=== PATIENT | male | born 1950 | race Caucasian/White ===

== ENCOUNTER 2018-09-24 08:39 | Inpatient (IN) | payer MEDICARE, OTHER ==
[~2018-09-24] VITALS: Ht 170.2 cm; Wt 58.5 kg
[~2018-09-24 08:39] MED LIST: NIFE60TA13 PO
[2018-09-24 09:07] VITALS: BP 159/72
[2018-09-24] MEDS ORDERED: LACTATED RINGERS 1,000 ML IV SCH (09:10)
[2018-09-24] MEDS ORDERED: ACETAMINOPHEN 500 MG TABLET PO ONE (09:30)
[2018-09-24] MEDS ORDERED: GABAPENTIN 300 MG CAPSULE PO ONE (09:30)
[2018-09-24] MEDS ORDERED: DIAZEPAM 5 MG TABLET PO ONE (09:30)
[2018-09-24] MEDS ORDERED: ONDANSETRON ODT 8 MG PO ONE (09:30)
[2018-09-24] MEDS ORDERED: MIDAZOLAM 1 MG/ML, 2ML ONE (09:47)
[2018-09-24] MEDS ORDERED: FENTANYL PF 250 MCG/5ML ONE (09:48)
[2018-09-24] MEDS ORDERED: BUPIVACAINE/PF 0.5% ONE (10:07)
[2018-09-24] MEDS ORDERED: LABETALOL 20 MG/4 ML ONE ×2 (10:28→12:41)
[2018-09-24] MEDS ORDERED: DIAZEPAM 5 MG/ML, 2ML IVPush PRN (11:00)
[2018-09-24] MEDS ORDERED: ONDANSETRON 2MG/ML, 2ML IV PRN (11:00)
[2018-09-24] MEDS ORDERED: hydrALAzine 20 MG/ML, 1ML IV PRN (11:00)
[2018-09-24] MEDS ORDERED: MIDAZOLAM 1 MG/ML, 2ML IV PRN (11:00)
[2018-09-24] MEDS ORDERED: HYDROmorphone 2 MG/ML, 1ML IVPush PRN (11:00)
[2018-09-24] MEDS ORDERED: ALBUTEROL/IPRATROPIUM 2.5MG/0.5MG, 3 ML NPPB PRN (11:00)
[2018-09-24] MEDS ORDERED: OXYcodone 5 MG/5 ML ORAL.SOL UDC PO PRN (11:00)
[2018-09-24] MEDS ORDERED: MEPERIDINE/PF 25MG/0.5ML IVPush PRN (11:00)
[2018-09-24] MEDS ORDERED: PROMETHAZINE 25 MG/ML, 1ML IV PRN (11:00)
[2018-09-24] MEDS ORDERED: SCOPOLAMINE PATCH, 1.5MG PATCH.TD72 TD PRN (11:00)
[2018-09-24] MEDS ORDERED: ROCURONIUM 10MG/ML,5ML ONE (11:58)
[2018-09-24] MEDS ORDERED: DEXAMETHASONE 4 MG/ML, 1ML ONE (11:58)
[2018-09-24] MEDS ORDERED: NEOSTIGMINE 1 MG/ML, 10ML ONE (11:58)
[2018-09-24] MEDS ORDERED: PROPOFOL 10 MG/ML, 20ML ONE (11:58)
[2018-09-24] MEDS ORDERED: GLYCOPYRROLATE 0.2MG/1ML, 5ML ONE (11:58)
[2018-09-24] MEDS ORDERED: CEFAZOLIN 1,000 MG ONE (11:58)
[2018-09-24] MEDS ORDERED: OXYcodone 5 MG/5 ML ORAL.SOL UDC ONE (12:24)
[2018-09-24] MEDS ORDERED: FENTANYL PF 100 MCG/2ML ONE ×2 (12:24→12:58)
[2018-09-24] MEDS: FENTANYL PF 100 MCG/2ML IV PRN ×3 (12:27→12:59)
[2018-09-24] MEDS: LABETALOL 5MG/ML, 20ML IV PRN ×2 (12:43→12:53)
[2018-09-24] MEDS ORDERED: ACETAMINOPHEN 650 MG/20.3 ML UDC PO PRN (13:00)
[2018-09-24] MEDS ORDERED: DIPHENHYDRAMINE 50 MG/ML, 1ML IV PRN (13:00)
[2018-09-24] MEDS ORDERED: ONDANSETRON 2MG/ML, 2ML IVPush PRN (13:00)
[2018-09-24] MEDS ORDERED: hydrALAzine 20 MG/ML, 1ML ONE (13:17)
[2018-09-24 14:40] VITALS: BP 136/57
[2018-09-24] MEDS: ENOXAPARIN 40 MG/0.4 ML SQ SCH (14:56)
[2018-09-24] MEDS: POTASSIUM CHLORIDE 20 MEQ in D5%-0.45% NACL 1,000 ML IV SCH (16:08)
[2018-09-24] MEDS: CEFAZOLIN PMX 1GM/50ML 50 ML IVPB SCH (18:24)
[2018-09-24 18:54] VITALS: BP 162/73
[2018-09-24] MEDS: hydrALAzine 20 MG/ML, 1ML IV PRN (18:58)
[2018-09-25 00:14] VITALS: BP 141/74
[2018-09-25] MEDS: POTASSIUM CHLORIDE 20 MEQ in D5%-0.45% NACL 1,000 ML IV SCH ×2 (01:55→10:30)
[2018-09-25] MEDS: CEFAZOLIN PMX 1GM/50ML 50 ML IVPB SCH (02:00)
[2018-09-25 04:00] VITALS: BP 166/73
[2018-09-25 05:56] LABS: ANION GAP 9 mmol/L (5-15); CALCIUM 8.1 mg/dL (8.5-10.1); CHLORIDE 102 mmol/L (98-107); CREATININE 1.93 mg/dL (0.7-1.3)
[2018-09-25 07:45] VITALS: BP 158/73
[2018-09-25] MEDS: ENOXAPARIN 40 MG/0.4 ML SQ SCH (13:24)
[2018-09-25 14:57] VITALS: BP 168/72
[2018-09-25 19:41] VITALS: BP 153/79
[2018-09-26 01:51] VITALS: BP 160/80
[2018-09-26] MEDS: POTASSIUM CHLORIDE 20 MEQ in D5%-0.45% NACL 1,000 ML IV SCH ×3 (05:36→20:33)
[2018-09-26 05:53] LABS: BASOPHILS # (AUTO) 0.02 x10^3/uL (0-0.1); BASOPHILS % (AUTO) 0 % (0-1); EOSINOPHILS # (AUTO) 0.04 x10^3/uL (0-0.4); EOSINOPHILS % (AUTO) 0 % (1-7); LYMPHOCYTES # (AUTO) 1.14 x10^3/uL (1-3.4); LYMPHOCYTES % (AUTO) 10 % (22-44); MD NO; MEAN CORPUSCULAR HEMOGLOBIN 32.9 pg (27.5-34.5); MEAN CORPUSCULAR HGB CONC 34.1 g/dL (33.2-36.2); MEAN CORPUSCULAR VOLUME 96.7 fL (81-97); MEAN PLATELET VOLUME 7.2 fL (7.4-10.4); MONOCYTES # (AUTO) 0.86 x10^3/uL (0.2-0.8); MONOCYTES % (AUTO) 7 % (2-9); NEUTROPHILS # (AUTO) 9.69 x10^3/uL (1.8-6.8); NEUTROPHILS % (AUTO) 82 % (42-75); PLATELET COUNT 332 x10^3/uL (130-400); RED BLOOD COUNT 3.39 x10^6/uL (4.38-5.82)
[2018-09-26 05:57] LABS: ANION GAP 6 mmol/L (5-15); CALCIUM 7.7 mg/dL (8.5-10.1); CHLORIDE 102 mmol/L (98-107); CREATININE 1.88 mg/dL (0.7-1.3)
[2018-09-26] MEDS ORDERED: SODIUM CHLORIDE 0.9%, 500ML IVBOLUS ONE (11:00)
[2018-09-26 12:53] VITALS: BP 143/68
[2018-09-26] MEDS: ENOXAPARIN 40 MG/0.4 ML SQ SCH (13:00)
[2018-09-26 19:01] VITALS: BP_SYST 189; BP_SYST 201; BP_DIAS 70; BP_DIAS 91
[2018-09-26] MEDS: hydrALAzine 20 MG/ML, 1ML IV PRN (19:30)
[2018-09-26 20:20] VITALS: BP 164/74
[2018-09-26] MEDS ORDERED: ENALAPRILAT 1.25 MG/ML, 2ML ONE (23:36)
[2018-09-26 23:40] VITALS: BP 194/85
[2018-09-26] MEDS: ENALAPRILAT 1.25 MG/ML, 2ML IV PRN (23:40)
[2018-09-27] VITALS (9 sets, daily range): BP systolic 152–181; BP diastolic 67–89
[2018-09-27] MEDS: POTASSIUM CHLORIDE 20 MEQ in D5%-0.45% NACL 1,000 ML IV SCH ×3 (04:04→22:21)
[2018-09-27 06:37] LABS: BASOPHILS % (AUTO) 0 % (0-1); EOSINOPHILS % (AUTO) 0 % (1-7); LYMPHOCYTES # (AUTO) 0.39 x10^3/uL (1-3.4); LYMPHOCYTES % (AUTO) 3 % (22-44); MD NO; MEAN CORPUSCULAR HEMOGLOBIN 32.6 pg (27.5-34.5); MEAN CORPUSCULAR HGB CONC 33.9 g/dL (33.2-36.2); MEAN CORPUSCULAR VOLUME 96.2 fL (81-97); MEAN PLATELET VOLUME 6.9 fL (7.4-10.4); MONOCYTES # (AUTO) 0.52 x10^3/uL (0.2-0.8); MONOCYTES % (AUTO) 5 % (2-9); NEUTROPHILS # (AUTO) 10.65 x10^3/uL (1.8-6.8); NEUTROPHILS % (AUTO) 92 % (42-75); PLATELET COUNT 320 x10^3/uL (130-400); RED BLOOD COUNT 3.46 x10^6/uL (4.38-5.82); RED CELL DISTRIBUTION WIDTH 14.4 % (9.4-14.8)
[2018-09-27 06:55] LABS: ANION GAP 8 mmol/L (5-15); CALCIUM 7.6 mg/dL (8.5-10.1); CHLORIDE 99 mmol/L (98-107); CREATININE 1.35 mg/dL (0.7-1.3)
[2018-09-27] MEDS ORDERED: LORazepam 2 MG/ML, 1ML IV PRN ×10 (08:00→09:00)
[2018-09-27] MEDS ORDERED: LORazepam 1MG TABLET PO PRN ×8 (08:00→09:00)
[2018-09-27] MEDS ORDERED: LORazepam 0.5MG TABLET PO PRN ×2 (08:00→09:00)
[2018-09-27] MEDS: hydrALAzine 20 MG/ML, 1ML IV PRN (08:17)
[2018-09-27] MEDS ORDERED: niFEDipine ER 30 MG TABLET.ER ONE (09:29)
[2018-09-27] MEDS: niFEDipine ER 60 MG TABLET.ER PO SCH ×2 (09:34→20:46)
[2018-09-27] MEDS: ENALAPRILAT 1.25 MG/ML, 2ML IV PRN (11:08)
[2018-09-27] MEDS: ENOXAPARIN 40 MG/0.4 ML SQ SCH (14:20)
[2018-09-28 01:58] VITALS: BP 157/68
[2018-09-28 05:30] LABS: BASOPHILS # (AUTO) 0.01 x10^3/uL (0-0.1); BASOPHILS % (AUTO) 0 % (0-1); EOSINOPHILS # (AUTO) 0.04 x10^3/uL (0-0.4); EOSINOPHILS % (AUTO) 0 % (1-7); LYMPHOCYTES # (AUTO) 0.65 x10^3/uL (1-3.4); LYMPHOCYTES % (AUTO) 7 % (22-44); MD NO; MEAN CORPUSCULAR HEMOGLOBIN 32.2 pg (27.5-34.5); MEAN CORPUSCULAR HGB CONC 33.7 g/dL (33.2-36.2); MEAN CORPUSCULAR VOLUME 95.7 fL (81-97); MEAN PLATELET VOLUME 7.4 fL (7.4-10.4); MONOCYTES # (AUTO) 0.78 x10^3/uL (0.2-0.8); MONOCYTES % (AUTO) 8 % (2-9); NEUTROPHILS # (AUTO) 8.16 x10^3/uL (1.8-6.8); NEUTROPHILS % (AUTO) 85 % (42-75); PLATELET COUNT 332 x10^3/uL (130-400); RED BLOOD COUNT 3.42 x10^6/uL (4.38-5.82); RED CELL DISTRIBUTION WIDTH 14.3 % (9.4-14.8)
[2018-09-28] MEDS: POTASSIUM CHLORIDE 20 MEQ in D5%-0.45% NACL 1,000 ML IV SCH ×3 (05:41→21:33)
[2018-09-28 05:44] LABS: ANION GAP 9 mmol/L (5-15); CALCIUM 8.2 mg/dL (8.5-10.1); CHLORIDE 98 mmol/L (98-107)
[2018-09-28 07:50] VITALS: BP_SYST 163; BP_SYST 193; BP_DIAS 71
[2018-09-28] MEDS: hydrALAzine 20 MG/ML, 1ML IV PRN ×2 (08:02→15:41)
[2018-09-28 08:58] VITALS: BP 152/66
[2018-09-28] MEDS: niFEDipine ER 60 MG TABLET.ER PO SCH ×2 (09:22→20:23)
[2018-09-28] MEDS: ENOXAPARIN 40 MG/0.4 ML SQ SCH (13:34)
[2018-09-28 13:46] VITALS: BP 175/71
[2018-09-28 19:30] VITALS: BP 157/71
[2018-09-29 02:12] VITALS: BP 168/92
[2018-09-29] MEDS: hydrALAzine 20 MG/ML, 1ML IV PRN (02:55)
[2018-09-29 05:31] LABS: BASOPHILS # (AUTO) 0.02 x10^3/uL (0-0.1); BASOPHILS % (AUTO) 0 % (0-1); EOSINOPHILS # (AUTO) 0.12 x10^3/uL (0-0.4); EOSINOPHILS % (AUTO) 1 % (1-7); LYMPHOCYTES # (AUTO) 0.77 x10^3/uL (1-3.4); LYMPHOCYTES % (AUTO) 8 % (22-44); MD NO; MEAN CORPUSCULAR HEMOGLOBIN 32.5 pg (27.5-34.5); MEAN CORPUSCULAR HGB CONC 33.7 g/dL (33.2-36.2); MEAN CORPUSCULAR VOLUME 96.4 fL (81-97); MEAN PLATELET VOLUME 7.3 fL (7.4-10.4); MONOCYTES # (AUTO) 0.92 x10^3/uL (0.2-0.8); MONOCYTES % (AUTO) 10 % (2-9); NEUTROPHILS # (AUTO) 7.62 x10^3/uL (1.8-6.8); NEUTROPHILS % (AUTO) 81 % (42-75); PLATELET COUNT 429 x10^3/uL (130-400); RED BLOOD COUNT 3.91 x10^6/uL (4.38-5.82); RED CELL DISTRIBUTION WIDTH 14.8 % (9.4-14.8)
[2018-09-29 05:39] LABS: ANION GAP 8 mmol/L (5-15); CALCIUM 8.7 mg/dL (8.5-10.1); CHLORIDE 96 mmol/L (98-107)
[2018-09-29] MEDS: POTASSIUM CHLORIDE 20 MEQ in D5%-0.45% NACL 1,000 ML IV SCH ×3 (05:50→21:55)
[2018-09-29 07:56] VITALS: BP 161/74
[2018-09-29] MEDS: niFEDipine ER 60 MG TABLET.ER PO SCH ×2 (08:54→22:09)
[2018-09-29] MEDS: ENOXAPARIN 40 MG/0.4 ML SQ SCH (13:24)
[2018-09-29 13:59] VITALS: BP 142/69
[2018-09-29 19:30] VITALS: BP 146/69
[2018-09-30 01:40] VITALS: BP 152/79
[2018-09-30 05:59] LABS: BASOPHILS % (AUTO) 0 % (0-1); EOSINOPHILS # (AUTO) 0.16 x10^3/uL (0-0.4); EOSINOPHILS % (AUTO) 2 % (1-7); LYMPHOCYTES # (AUTO) 0.63 x10^3/uL (1-3.4); LYMPHOCYTES % (AUTO) 7 % (22-44); MD NO; MEAN CORPUSCULAR HEMOGLOBIN 32.4 pg (27.5-34.5); MEAN CORPUSCULAR HGB CONC 33.9 g/dL (33.2-36.2); MEAN CORPUSCULAR VOLUME 95.7 fL (81-97); MEAN PLATELET VOLUME 7.1 fL (7.4-10.4); MONOCYTES # (AUTO) 0.83 x10^3/uL (0.2-0.8); MONOCYTES % (AUTO) 9 % (2-9); NEUTROPHILS # (AUTO) 7.45 x10^3/uL (1.8-6.8); NEUTROPHILS % (AUTO) 82 % (42-75); PLATELET COUNT 415 x10^3/uL (130-400); RED BLOOD COUNT 3.73 x10^6/uL (4.38-5.82); RED CELL DISTRIBUTION WIDTH 14.1 % (9.4-14.8)
[2018-09-30 06:01] LABS: CHLORIDE 96 mmol/L (98-107)
[2018-09-30 06:17] LABS: ANION GAP 10 mmol/L (5-15); CALCIUM 8.4 mg/dL (8.5-10.1); CREATININE 1.17 mg/dL (0.7-1.3)
[2018-09-30] MEDS: POTASSIUM CHLORIDE 20 MEQ in D5%-0.45% NACL 1,000 ML IV SCH ×3 (06:42→23:09)
[2018-09-30 07:54] VITALS: BP 154/82
[2018-09-30] MEDS: niFEDipine ER 60 MG TABLET.ER PO SCH ×2 (08:28→20:51)
[2018-09-30 12:27] VITALS: BP 123/70
[2018-09-30] MEDS: ENOXAPARIN 40 MG/0.4 ML SQ SCH (13:16)
[2018-09-30 19:42] VITALS: BP 173/75
[2018-10-01 01:44] VITALS: BP 160/79
[2018-10-01 05:33] LABS: BASOPHILS # (AUTO) 0.03 x10^3/uL (0-0.1); BASOPHILS % (AUTO) 0 % (0-1); EOSINOPHILS # (AUTO) 0.25 x10^3/uL (0-0.4); EOSINOPHILS % (AUTO) 3 % (1-7); LYMPHOCYTES # (AUTO) 0.67 x10^3/uL (1-3.4); LYMPHOCYTES % (AUTO) 7 % (22-44); MD NO; MEAN CORPUSCULAR HEMOGLOBIN 31.7 pg (27.5-34.5); MEAN CORPUSCULAR VOLUME 96.2 fL (81-97); MEAN PLATELET VOLUME 6.9 fL (7.4-10.4); MONOCYTES # (AUTO) 0.78 x10^3/uL (0.2-0.8); MONOCYTES % (AUTO) 8 % (2-9); NEUTROPHILS # (AUTO) 7.78 x10^3/uL (1.8-6.8); NEUTROPHILS % (AUTO) 82 % (42-75); PLATELET COUNT 402 x10^3/uL (130-400); RED BLOOD COUNT 3.67 x10^6/uL (4.38-5.82); RED CELL DISTRIBUTION WIDTH 14.3 % (9.4-14.8)
[2018-10-01 05:47] LABS: ANION GAP 7 mmol/L (5-15); CALCIUM 8.3 mg/dL (8.5-10.1); CHLORIDE 100 mmol/L (98-107)
[2018-10-01 05:49] LABS: CREATININE 1.28 mg/dL (0.7-1.3)
[2018-10-01] MEDS: POTASSIUM CHLORIDE 20 MEQ in D5%-0.45% NACL 1,000 ML IV SCH ×2 (06:51→14:25)
[2018-10-01 07:33] VITALS: BP 148/66
[2018-10-01] MEDS ORDERED: OXYcodone IR 5MG TABLET PO PRN (08:00)
[2018-10-01] MEDS: niFEDipine ER 60 MG TABLET.ER PO SCH ×2 (08:54→21:24)
[2018-10-01] MEDS: ENOXAPARIN 40 MG/0.4 ML SQ SCH (13:10)
[2018-10-01 15:45] VITALS: BP 155/73
[2018-10-01 19:37] VITALS: BP 171/81
[2018-10-02] MEDS: POTASSIUM CHLORIDE 20 MEQ in D5%-0.45% NACL 1,000 ML IV SCH ×3 (02:00→18:32)
[2018-10-02 02:25] VITALS: BP 123/60
[2018-10-02 07:28] VITALS: BP 126/62
[2018-10-02] MEDS: niFEDipine ER 60 MG TABLET.ER PO SCH ×2 (07:50→21:26)
[2018-10-02] MEDS: ENOXAPARIN 40 MG/0.4 ML SQ SCH (12:17)
[2018-10-02 14:48] VITALS: BP 115/69
[2018-10-02 20:40] VITALS: BP 158/79
[2018-10-03] MEDS: POTASSIUM CHLORIDE 20 MEQ in D5%-0.45% NACL 1,000 ML IV SCH (02:15)
[2018-10-03 02:50] VITALS: BP_SYST 140; BP_SYST 144; BP_DIAS 71
[2018-10-03 06:59] VITALS: BP 142/76
[2018-10-03] MEDS: niFEDipine ER 60 MG TABLET.ER PO SCH ×2 (07:48→21:22)
[2018-10-03] MEDS: ENOXAPARIN 40 MG/0.4 ML SQ SCH (12:44)
[2018-10-03 12:55] VITALS: BP 143/72
[2018-10-03 19:33] VITALS: BP 159/78
[2018-10-03 21:21] VITALS: BP 173/85
[2018-10-04 02:24] VITALS: BP 131/60
[2018-10-04 06:48] VITALS: BP 132/78
[2018-10-04] MEDS: niFEDipine ER 60 MG TABLET.ER PO SCH (09:14)
[2018-10-04 12:26] VITALS: BP 132/67
[2018-10-04] MEDS: ENOXAPARIN 40 MG/0.4 ML SQ SCH (13:23)
== END 2018-10-04 14:04 | disposition home or self-care (01) | DRG 354 ==
LOC: OUT 08:39 → ORIP 12:55 → 4NOR 14:30 → DCLOUNGE 10-04 13:50
PROVIDERS: ADMIT Surgery; ATTEND Surgery
PROC: 0WUF0JZ Supplement Abdominal Wall with Synthetic Substitute, Open Approach (ICD-10-PCS; principal; 2018-09-24 10:30)
DX: K43.2 Incisional hernia without obstruction or gangrene (principal); K56.7 Ileus, unspecified; N17.9 Acute kidney failure, unspecified; I10 Essential (primary) hypertension; M19.90 Unspecified osteoarthritis, unspecified site; R33.9 Retention of urine, unspecified; Z96.641 Presence of right artificial hip joint; Z79.4 Long term (current) use of insulin; Z82.49 Family history of ischemic heart disease and other diseases of the circulatory system
CPT/HCPCS: 36415; 74018; 80048; 82040; 85025; 93005; C1729; G0378; J0690; J1100; J1650; J2250; J2270; J2704; J2710; J3010; J3480; J3490; Q0162; C1781; J0360; J7120